=== PATIENT | male | born 1990 | race African-American/Black ===

== ENCOUNTER → 2018-11-23 | Outpatient (CLI) | payer OTHER ==
--- NOTE | 2018-11-23 14:41 | CT ---
EXAMINATION TYPE: CT pelvis w con DATE OF EXAM: 11/23/2018 COMPARISON: None HISTORY: Lt groin pain CT DLP: 659 mGycm Automated exposure control for dose reduction was used. TECHNIQUE: Axial images 5 mm thick sections. Postcontrast imaging is performed. Delayed images were o btained. Reconstructed images in the coronal and sagittal plane are reviewed. CONTRAST: Performed with IV Contrast, patient injected with 100 mL of Isovue 300. FINDINGS: Inferior portions of the liver and spleen visualized normal. Portion of the gallbladder visualized is normal. Pancreas is incompletely visualized. Inferior poles the kidneys are normal. Portion of the a kumar and inferior vena cava within the [id number] are normal Loops of bowel within the pelvis are unremarkable. Some small bowel fluid is present in the lower pel vis. Urinary bladder is normal. Prostate is unremarkable. There is a 1.2 cm left inguinal lymph node. Couple smaller inguinal lymph nodes are present on the left and right. Patient is status post right inguinal hernia repair. No recurrent hernia is evident. Muscular density appears stable. IMPRESSION: THERE IS A 1.2 CM TRANSVERSE DIMENSION LEFT INGUINAL LYMPH NODE WITH ADDITIONAL SMALLER LYMPHADENOPAT HY IN THE LEFT INGUINAL REGION.
== END | disposition home or self-care (01) ==
LOC: RADCTMAIN 13:45
PROVIDERS: ATTEND Surgery
DX: R59.1 Generalized enlarged lymph nodes (principal)
CPT/HCPCS: 72193; Q9967

== ENCOUNTER 2020-05-26 16:14 | Emergency (ER) | payer BC, OTHER ==
[2020-05-26 16:20] VITALS: RESP 18; TEMP 98.3
--- NOTE | 2020-05-26 16:48 | ED ---
General Adult HPI - General Chief complaint: Shortness of Breath Stated complaint: fluid in lungs Time Seen by Provider: 05/26/20 16:22 Source: patient, RN notes reviewed Mode of arrival: ambulatory Limitations: no limitations - History of Present Illness Initial comments: 30-year-old male presents to the emergency room for a chief complaint of cough. Patient reports he has had a cough for about one week. States he finished a course of azithromycin and did a steroid dose pack. Patient emits to slight shortness of breath. States he has a history of asthma. Denies chest pain. Denies fevers. CT tested negative for Covid one week ago. Patient apparently went to urgent care today and they thought he may have fluid on his lungs although the radiologist did not see any acute findings. Patient presents with a disc and radiology reading.Patient has no other complaints at this time including , chest pain, abdominal pain, nausea or vomiting, headache, or visual changes. - Related Data Previous Rx's Medication Instructions Recorded Albuterol Inhaler [Ventolin Hfa 2 puff INHALATION RT-QID PRN #1 05/26/20 Inhaler] inhaler guaiFENesin [Mucinex] 600 mg PO Q12HR PRN #20 tablet.er 05/26/20 predniSONE 50 mg PO DAILY #5 tablet 05/26/20 Allergies Allergy/AdvReac Type Severity Reaction Status Date / Time No Known Allergies Allergy Verified 05/26/20 16:50 Review of Systems ROS Statement: Those systems with pertinent positive or pertinent negative responses have been documented in the HPI. ROS Other: All systems not noted in ROS Statement are negative. Past Medical History Past Medical History: No Reported History History of Any Multi-Drug Resistant Organisms: None Reported Past Surgical History: No Surgical Hx Reported Past Psychological History: No Psychological Hx Reported Smoking Status: Never smoker Past Alcohol Use History: Rare Past Drug Use History: None Reported General Exam Limitations: no limitations General appearance: alert Head exam: Present: atraumatic Eye exam: Present: normal appearance, PERRL, EOMI. Absent: scleral icterus, conjunctival injection ENT exam: Present: normal exam, mucous membranes moist Neck exam: Present: normal inspection, full ROM. Absent: tenderness Respiratory exam: Present: normal lung sounds bilaterally. Absent: respiratory distress Cardiovascular Exam: Present: regular rate, normal rhythm, normal heart sounds GI/Abdominal exam: Present: soft, normal bowel sounds. Absent: distended, tenderness Neurological exam: Present: alert Course Vital Signs 05/26/20 16:17 Temperature 98.3 F Pulse Rate 80 Respiratory 18 Rate Blood Pressure 150/72 O2 Sat by Pulse 98 Oximetry EKG Findings - EKG Comments: EKG Findings:: Normal sinus rhythm, ventricular rate 71, AZ interval 134, QTC 378 Medical Decision Making - Medical Decision Making Vitals are stable. Patient is well appearing. No respiratory distress. Presents for a cough with shortness of breath for one week. Lung exam is normal, lungs are clear to auscultation bilaterally. Covid tested negative again today. Chest x-ray shows no active cardiopulmonary disease. I did review this with Dr. Lujan, we do not see any evidence of pleural effusion. Patient is PERC negative, no critical indication for PE. Patient will be started on Mucinex as well as an inhaler as he has history of asthma and does not have one at home. He'll be started on prednisone. He will follow up with his doctor tomorrow, he arty has an appointment. He will return here for any worsening symptoms. - Lab Data Lab Results 05/26/20 Range/Units 16:38 Coronavirus (PCR) Not Detected (Not Detectd) Disposition Clinical Impression: Cough Disposition: HOME SELF-CARE Condition: Good Instructions (If sedation given, give patient instructions): Acute Bronchitis (ED) Additional Instructions: Please use medications as directed. Follow-up with your doctor. If you have any worsening symptoms return to the emergency room. Prescriptions: guaiFENesin [Mucinex] 600 mg PO Q12HR PRN #20 tablet.er PRN Reason: Congestion predniSONE 50 mg PO DAILY #5 tablet Albuterol Inhaler [Ventolin Hfa Inhaler] 2 puff INHALATION RT-QID PRN #1 inhaler PRN Reason: Shortness Of Breath Is patient prescribed a controlled substance at d/c from ED?: No Referrals: Moi Garcia MD [Primary Care Provider] - 1-2 days Time of Disposition: 18:03
--- NOTE | 2020-05-26 17:20 | XR ---
EXAMINATION TYPE: XR chest 2V DATE OF EXAM: 05/26/2020 COMPARISON: 05/23/2018 HISTORY: Cough TECHNIQUE: FINDINGS: The lungs are clear. There is no heart failure. Heart size is normal. There are no hilar ma sses. Mediastinum is normal. There is mild thoracolumbar dextroscoliosis. There is thoracic levoscoli osis. IMPRESSION: No active cardiopulmonary disease. No change.
[2020-05-26 18:24] VITALS: BP 130/76; PULSE 68
== END 2020-05-26 18:19 | disposition home or self-care (01) ==
LOC: EC 16:14
DX: R05 Cough (principal); Z20.822 Contact with and (suspected) exposure to COVID-19; R06.02 Shortness of breath; Z87.09 Personal history of other diseases of the respiratory system
CPT/HCPCS: 71046; 87635; 93005; 99285

== ENCOUNTER → 2020-09-24 | Outpatient (CLI) | payer BC ==
--- NOTE | 2020-09-25 07:38 | CT ---
EXAMINATION TYPE: CT sinus wo con DATE OF EXAM: 09/24/2020 COMPARISON: None HISTORY: chronic sinus congestion CT DLP: 440.[address] of the paranasal sinuses was performed in the axial and coronal planes. Bone and soft tissue settings are submitted. The paranasal sinuses demonstrate normal aeration and development. There is mild mucosal thickening involving the bilateral maxillary sinuses left slightly greater than right. Superomedially left maxillary sinus there is a mucous retention cyst or polyp measuring 1.5 x 0.9 cm. The remaining paranasal sinuses are well-aerated. Left-sided maxillary dentigerous cyst noted measuring 1.6 x 1.2 cm. Tiny right-sided maxillary dentig erous cyst measuring 6 x 5 mm. The osteal meatal units are patent bilaterally. The nasal septum is deviated from left to right. No bony destructive changes are seen within the field of view. IMPRESSION: 1. Chronic maxillary sinusitis with the left maxillary sinus mucous retention cyst or polyp. 2. Maxillary dentigerous cysts as noted.
== END | disposition home or self-care (01) ==
LOC: RADCTMAIN 16:44
PROVIDERS: ATTEND Otolaryngology
DX: J32.0 Chronic maxillary sinusitis (principal); J34.2 Deviated nasal septum; K09.0 Developmental odontogenic cysts
CPT/HCPCS: 70486